=== PATIENT | male | born 1960 | race American Indian/Alaskan Native ===

== ENCOUNTER 2018-11-08 08:35 | Outpatient (CLI) | payer OTHER ==
--- NOTE | 2018-11-08 10:38 | XRay Report ---
Lumbar spine: Back pain. AP and lateral views demonstrates a somewhat increased overall density of the L4 body with vertical striations suggesting possible hemangiomatous changes. L4 is also anteriorly subluxed by approximately 8 mm compared to L5 with significant narrowing of the interspace and anterior spondylosis. L5 is slightly sclerotic at the articular margins with both large anterior and posterior articular spurs at the inferior margin with severe narrowing of the L5-S1 interspace. There is significant sclerotic and possible narrowing changes involving the apophyseal joints between L3 and S1. The exam otherwise appears generally unremarkable. Impressions: Multiple abnormal levels from L3-S1 as described.
== END 2018-11-08 08:36 | disposition home or self-care (01) ==
LOC: SPVIMAG 08:35
DX: M47.897 Other spondylosis, lumbosacral region (principal); M48.07 Spinal stenosis, lumbosacral region
CPT/HCPCS: 72100